=== PATIENT | male | born 1960 | race Two or more races ===

== ENCOUNTER 2018-01-24 07:22 | Outpatient (CLI) | payer OTHER | END 2018-01-24 07:48 | disposition home or self-care (01) | LOC: LAB 07:22 | DX: D51.1 Vitamin B12 deficiency anemia due to selective vitamin B12 malabsorption with proteinuria (principal); K29.70 Gastritis, unspecified, without bleeding; E78.2 Mixed hyperlipidemia; D50.8 Other iron deficiency anemias; D51.8 Other vitamin B12 deficiency anemias; I10 Essential (primary) hypertension; D55.0 Anemia due to glucose-6-phosphate dehydrogenase [G6PD] deficiency; D51.0 Vitamin B12 deficiency anemia due to intrinsic factor deficiency; E55.9 Vitamin D deficiency, unspecified; K90.89 Other intestinal malabsorption; E03.8 Other specified hypothyroidism; E06.3 Autoimmune thyroiditis ==

== ENCOUNTER 2018-01-24 08:15 | Outpatient (CLI) | payer OTHER | END 2018-01-24 08:33 | disposition home or self-care (01) | LOC: SONOGRAMA 08:15 → MAMO-SONO 09:15 | DX: E06.3 Autoimmune thyroiditis (principal); E03.8 Other specified hypothyroidism; D51.1 Vitamin B12 deficiency anemia due to selective vitamin B12 malabsorption with proteinuria; K29.70 Gastritis, unspecified, without bleeding; E78.2 Mixed hyperlipidemia ==

== ENCOUNTER 2018-11-10 07:20 | Emergency (ER) | payer OTHER ==
[~2018-11-10] VITALS: Ht 180.3 cm; Wt 63.5 kg
[2018-11-10] MEDS ORDERED: DILAUDID2 MG (07:30)
[2018-11-10] MEDS ORDERED: CLONAZEPAM1 MG (07:30)
== END 2018-11-10 13:38 | disposition home or self-care (01) ==
LOC: ER 07:20
DX: K29.70 Gastritis, unspecified, without bleeding (principal); R10.13 Epigastric pain; C25.9 Malignant neoplasm of pancreas, unspecified

== ENCOUNTER 2018-11-24 15:08 | Emergency (ER) | payer OTHER ==
[~2018-11-24] VITALS: Ht 180.3 cm; Wt 59.0 kg
[~2018-11-24 15:08] MED LIST: CLONAZEPAM1 MG; DILAUDID2 MG
[2018-11-24] MEDS ORDERED: PERCOCET 5-3251 EACH (16:00)
[2018-11-25] MEDS ORDERED: FENTANYL1 EAC2 TOP (04:14)
[2018-11-25] MEDS ORDERED: DEMEROL 50 M50 MG/ML IM (04:14)
== END 2018-11-25 04:39 | disposition home or self-care (01) ==
LOC: ER 15:08
DX: K29.70 Gastritis, unspecified, without bleeding (principal); N39.0 Urinary tract infection, site not specified